=== PATIENT | male | born 1945 | race Caucasian/White ===

== ENCOUNTER 2018-03-06 11:51 | Emergency (ER) | payer MEDICARE, OTHER ==
[~2018-03-06] VITALS: Ht 193 cm; Wt 89.1 kg
[~2018-03-06 11:51] MED LIST: APIX5TAB PO; ASCO-96 PO; ASPI-496 PO; ATOR40TA78 PO; CALC-570 PO; CETI10TA18 PO; CHOL100012 PO; CINN500C2 PO; DIPH25CA61 PO; GLUC-111 PO; GLUC15006 PO; MELO15TA24 PO; METO50TA4 PO; MULT-717 PO; OMEG1CAP94 PO; OXYC5CAP2 PO; RED600CA2 PO; TRAM50TA2 PO; UBID100C24 PO; [UNRECOGNIZED DRUG - CODE] PO; [UNRECOGNIZED DRUG - REMARK] PO
[2018-03-06 11:57] VITALS: BP 143/78
== END 2018-03-06 13:22 | disposition home or self-care (01) ==
LOC: ED 12:58
DX: S63.637A Sprain of interphalangeal joint of left little finger, initial encounter (principal); M19.132 Post-traumatic osteoarthritis, left wrist; I48.91 Unspecified atrial fibrillation; W00.0XXA Fall on same level due to ice and snow, initial encounter; Z87.891 Personal history of nicotine dependence; Y93.89 Activity, other specified; Y92.89 Other specified places as the place of occurrence of the external cause; Y99.8 Other external cause status
CPT/HCPCS: 99283